=== PATIENT | male | born 1970 | race Caucasian/White ===

== ENCOUNTER 2017-12-01 20:28 | Emergency (ER) | payer MEDICAID ==
[2017-12-01] MEDS ORDERED: Ibuprofen 600 MG Tab PO STA (21:20)
--- NOTE | 2017-12-01 21:22 | EDM.PDOC ---
ED HPI GENERAL MEDICAL PROBLEM - General Chief Complaint: Upper Extremity Injury/Pain Stated Complaint: SORE RIGHT ARM Time Seen by Provider: 12/01/17 20:28 Source of Information: Reports: Patient, Family (SO) History Limitations: Reports: Intoxication - History of Present Illness INITIAL COMMENTS - FREE TEXT/NARRATIVE: 47 y.o.w.m -etoh intoxicated-came with his SO to the ed after he boxed a door because he was upset his little dog vanished. Dog was found, later on. Pt c/o of right hand and right forearm pain, has FROM however. No N/V/D or any other acute medical issues. BP 114/73 RR 18 Pulse 104 temp 36.8 Pulse ox 97% on RA Onset Date: 12/01/17 Onset Time: 14:00 Duration: Hour(s): Location: Reports: Upper Extremity, Right Quality: Reports: Ache, Dull Severity: Moderate Improves with: Reports: Rest Worsens with: Reports: Movement Context: Reports: Trauma (boxed a wall) Associated Symptoms: Reports: No Other Symptoms Treatments BAKER BREAD: Reports: Other (see below) (ice) Rt arm Pain Score (Numeric/FACES): 9 - Related Data Allergies Allergy/AdvReac Type Severity Reaction Status Date / Time No Known Allergies Allergy Verified 12/01/17 20:40 Home Meds: Home Meds Aspirin [Ecotrin] 325 mg PO DAILY 12/01/17 [History] Metoprolol Succinate [Toprol XL] 25 mg PO BID 12/01/17 [History] Past Medical History - Past Health History Medical/Surgical History: Denies Medical/Surgical History HEENT History: Reports: Impaired Vision Cardiovascular History: Reports: Afib Other Dermatologic History: boil removed Social & Family History - Family History Family Medical History: Noncontributory - Tobacco Use Smoking Status *Q: Current Every Day Smoker Years of Tobacco use: 30 Packs/Tins Daily: 1 - Caffeine Use Caffeine Use: Reports: Soda - Recreational Drug Use Recreational Drug Use: No Review of Systems - Review of Systems Review Of Systems: Unable To Obtain (intoxicated) ED EXAM, GENERAL - Physical Exam Exam: See Below Exam Limited By: Intoxication General Appearance: Alert, WD/WN, Mild Distress Eye Exam: Bilateral Eye: Normal Inspection Ears: Normal External Exam Ear Exam: Bilateral Ear: Auricle Normal Nose: Normal Inspection, Normal Mucosa, No Blood Throat/Mouth: Normal Lips, Normal Gums, Normal Oropharynx, Normal Voice, No Airway Compromise Head: Atraumatic, Normocephalic Neck: Normal Inspection, Supple, Non-Tender, Full Range of Motion Respiratory/Chest: No Respiratory Distress, Lungs Clear, Normal Breath Sounds, No Accessory Muscle Use, Chest Non-Tender Cardiovascular: Normal Peripheral Pulses, Regular Rate, Rhythm, No Edema, No Gallop, No JVD, No Murmur GI/Abdominal: Normal Bowel Sounds, Soft, Non-Tender, No Organomegaly, No Distention, No Abnormal Bruit, No Mass, Pelvis Stable (Male) Exam: Deferred Rectal (Males) Exam: Deferred Back Exam: Normal Inspection, Full Range of Motion Extremities: Normal Inspection, Normal Range of Motion, No Pedal Edema, Other ( tender righ hand and right forearm) Neurological: Alert, Oriented, CN II-XII Intact, Normal Cognition, Normal Gait, No Motor/Sensory Deficits Psychiatric: Normal Affect, Normal Mood Skin Exam: Warm, Dry, Intact, Normal Color, No Rash Lymphatic: No Adenopathy Course - Vital Signs Text/Narrative:: 47 y.o.w.m -etoh intoxicated-came with his SO to the ed after he boxed a door because he was upset his little dog vanished. Dog was found, later on. Pt c/o of right hand and right forearm pain, has FROM however. No N/V/D or any other acute medical issues. BP 114/73 RR 18 Pulse 104 temp 36.8 Pulse ox 97% on RA PE: Intoxicated 47 y.o.w.m with right hand and forearm pain Imaging: (R) Hand/forearm: NAD Impression: Hand/forearm sprain Tx: ICE, Motrin, pt refused splint Reexam: Improved Plan: D/VC home with SO Last Recorded V/S: Last Vital Signs Temp 36.8 C 12/01/17 21:28 Pulse 97 12/01/17 21:28 Resp 18 12/01/17 21:28 BP 108/71 12/01/17 21:28 Pulse Ox 100 12/01/17 21:28 - Orders/Labs/Meds Orders: Active Orders 24 hr Category Date Time Status Forearm 2V Rt [CR] Stat Exams 12/01/17 20:46 Taken Hand Comp Min 3V Rt [CR] Stat Exams 12/01/17 20:46 Taken Meds: Medications Discontinued Medications Generic Name Dose Route Start Last Admin Trade Name Kane PRN Reason Stop Dose Admin Ibuprofen 600 mg 12/01/17 21:20 12/01/17 21:25 Motrin PO 12/01/17 21:21 600 mg ONETIME STA Administration Departure - Departure Time of Disposition: 21:20 Disposition: Home, Self-Care 01 Condition: Good Clinical Impression: Sprain of forearm, right Qualifiers: Encounter type: initial encounter Qualified Code(s): S63.501A - Unspecified sprain of right wrist, initial encounter - Discharge Information Instructions: RICE for Routine Care of Injuries, [id number], Wrist Sprain, Adult Referrals: Jose Skelton MD [Primary Care Provider] - Forms: ED Department Discharge Additional Instructions: Ice, rest and elevation, Motrin for pain, F/U, come back if your symptoms get worse acutely - My Orders Last 24 Hours: My Active Orders 12/01/17 20:46 Forearm 2V Rt [CR] Stat Hand Comp Min 3V Rt [CR] Stat - Assessment/Plan Last 24 Hours: My Active Orders 12/01/17 20:46 Forearm 2V Rt [CR] Stat Hand Comp Min 3V Rt [CR] Stat
[2017-12-01 21:32] VITALS: BP 108/71
== END 2017-12-01 21:28 | disposition home or self-care (01) ==
LOC: FB.ED 20:28
DX: S63.501A Unspecified sprain of right wrist, initial encounter (principal); F10.129 Alcohol abuse with intoxication, unspecified; F17.210 Nicotine dependence, cigarettes, uncomplicated; Z79.82 Long term (current) use of aspirin; Z79.899 Other long term (current) drug therapy; W22.8XXA Striking against or struck by other objects, initial encounter
CPT/HCPCS: 73090-RT; 73130-RT; 99283; A9270-GY

== ENCOUNTER 2018-04-08 12:32 | Emergency (ER) | payer SELFPAY ==
[2018-04-08] MEDS ORDERED: traMADol 50 MG Tab PO ONE (12:33)
[2018-04-08 12:48] VITALS: BP 136/84
--- NOTE | 2018-04-08 13:03 | EDM.PDOC ---
ED HPI GENERAL MEDICAL PROBLEM - General Chief Complaint: Back Pain or Injury Stated Complaint: SLIPPED ON ICE HIT BACK ON PICKUP BUMPER Time Seen by Provider: 04/08/18 12:59 Source of Information: Reports: Patient History Limitations: Reports: No Limitations - History of Present Illness INITIAL COMMENTS - FREE TEXT/NARRATIVE: Patient slipped on ice 04/04/18, struck right mid back against car bumper. Has had pain to this area since, pain in worse with inspiration. Denies hematuria. No other injuries. Onset Date: 04/04/18 Duration: Day(s): (4) Location: Reports: Back Quality: Reports: Dull Severity: Moderate Improves with: Reports: None Worsens with: Reports: Breathing Associated Symptoms: Reports: No Other Symptoms Treatments EQUINE VET: Reports: NSAIDS Right side Pain Score (Numeric/FACES): 6 - Related Data Allergies Allergy/AdvReac Type Severity Reaction Status Date / Time No Known Allergies Allergy Verified 04/08/18 12:39 Home Meds: Home Meds Aspirin [Ecotrin] 325 mg PO DAILY 12/01/17 [History] Metoprolol Succinate [Toprol XL] 25 mg PO BID 12/01/17 [History] Past Medical History HEENT History: Reports: Impaired Vision Cardiovascular History: Reports: Afib, Hypertension Neurological History: Reports: Migraines Dermatologic History: Reports: Other (See Below) Other Dermatologic History: boil removed Social & Family History - Family History Family Medical History: Noncontributory - Tobacco Use Smoking Status *Q: Current Every Day Smoker Tobacco Use Within Last Twelve Months: Cigarettes Years of Tobacco use: 30 Packs/Tins Daily: 1 Used Tobacco, but Quit: No - Caffeine Use Caffeine Use: Reports: Soda - Recreational Drug Use Recreational Drug Use: No ED ROS GENERAL - Review of Systems Review Of Systems: ROS reveals no pertinent complaints other than HPI. ED EXAM,LOWER BACK PAIN/INJURY - Physical Exam Exam: See Below Exam Limited By: No Limitations General Appearance: Alert, WD/WN, No Apparent Distress Ears: Normal External Exam Nose: Normal Inspection, Normal Mucosa Throat/Mouth: No Airway Compromise Head: Atraumatic, Normocephalic Neck: Normal Inspection, Full Range of Motion Respiratory/Chest: No Respiratory Distress, Lungs Clear, Normal Breath Sounds, No Accessory Muscle Use Cardiovascular: Regular Rate, Rhythm, No Murmur GI/Abdominal: Normal Bowel Sounds, Soft, Non-Tender, No Distention Back Exam: Other (Ecchymosis, and mild tenderness to right mid back, no crepitus ) Neurological: Alert, Normal Mood/Affect Skin Exam: Warm, Dry, Intact Course - Vital Signs Last Recorded V/S: Last Vital Signs Temp 36.5 C 04/08/18 12:35 Pulse 88 04/08/18 12:35 Resp 18 04/08/18 12:35 BP 136/84 04/08/18 12:35 Pulse Ox 100 04/08/18 12:35 - Orders/Labs/Meds Orders: Active Orders 24 hr Category Date Time Status Ribs 2V w Chest Rt [CR] Stat Exams 04/08/18 13:03 Taken - Radiology Interpretation Free Text/Narrative:: Right rib XR: NAD Departure - Departure Time of Disposition: 14:25 Disposition: Home, Self-Care 01 Condition: Good Clinical Impression: Contusion of right side of mid back Qualifiers: Encounter type: initial encounter Qualified Code(s): S20.221A - Contusion of right back wall of thorax, initial encounter - Discharge Information *PRESCRIPTION DRUG MONITORING PROGRAM REVIEWED*: Yes *COPY OF PRESCRIPTION DRUG MONITORING REPORT IN PATIENT CLARISSE: Not Applicable Instructions: Contusion, [id number] Referrals: Jose Skelton MD [Primary Care Provider] - Forms: ED Department Discharge Additional Instructions: Continue Ibuprofen as needed. May also take Tramadol as needed. Rest. Follow up if symptoms don't improve or worsen. - My Orders Last 24 Hours: My Active Orders 04/08/18 13:03 Ribs 2V w Chest Rt [CR] Stat - Assessment/Plan Last 24 Hours: My Active Orders 04/08/18 13:03 Ribs 2V w Chest Rt [CR] Stat
== END 2018-04-08 14:32 | disposition home or self-care (01) ==
LOC: FB.ED 12:32
DX: S20.221A Contusion of right back wall of thorax, initial encounter (principal); W00.0XXA Fall on same level due to ice and snow, initial encounter; I48.91 Unspecified atrial fibrillation; I10 Essential (primary) hypertension; G43.909 Migraine, unspecified, not intractable, without status migrainosus; F17.210 Nicotine dependence, cigarettes, uncomplicated; Z79.82 Long term (current) use of aspirin; Z79.899 Other long term (current) drug therapy
CPT/HCPCS: 71101; 99283; A9270

== ENCOUNTER 2020-02-20 05:22 | Emergency (ER) | payer SELFPAY ==
--- NOTE | 2020-02-20 06:32 | EDM.PDOC ---
ED HPI GENERAL MEDICAL PROBLEM - General Chief Complaint: Respiratory Problem Stated Complaint: SOB Time Seen by Provider: 02/20/20 06:15 Source of Information: Reports: Patient, Family History Limitations: Reports: No Limitations - History of Present Illness INITIAL COMMENTS - FREE TEXT/NARRATIVE: Darvin comes into [facility] ED with a 3 week hx of night time awakening and sensation o f gasping for breath. This has been associated with some coughing, but no zoe chest pain, palpitations, or lt headiness. He is not aware of any exposures. There is no sinus pressure or discharge, no sore throat, wheezing or recent sxs of GERD. 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 Mid upper abdomen Pain Score (Numeric/FACES): 5 - Related Data Allergies Allergy/AdvReac Type Severity Reaction Status Date / Time No Known Allergies Allergy Verified 02/20/20 06:50 Home Meds: Home Meds Apixaban [Eliquis] 5 mg PO BID #30 tablet 02/20/20 [Rx] Aspirin [Halfprin] 81 mg PO DAILY 02/20/20 [History] Furosemide [Lasix] 40 mg PO DAILY #14 tablet 02/20/20 [Rx] Past Medical History - Past Health History Medical/Surgical History: Denies Medical/Surgical History HEENT History: Reports: Impaired Vision Cardiovascular History: Reports: Afib, Hypertension Neurological History: Reports: Migraines Dermatologic History: Reports: Other (See Below) Other Dermatologic History: boil removed Social & Family History - Family History Family Medical History: No Pertinent Family History - Caffeine Use Caffeine Use: Reports: Soda ED ROS GENERAL - Review of Systems Review Of Systems: See Below Constitutional: Reports: No Symptoms HEENT: Reports: No Symptoms Respiratory: Reports: Shortness of Breath, Cough, Sputum Cardiovascular: Reports: No Symptoms Endocrine: Reports: No Symptoms GI/Abdominal: Reports: Other (GERD) : Reports: No Symptoms Musculoskeletal: Reports: No Symptoms Skin: Reports: No Symptoms Neurological: Reports: No Symptoms Psychiatric: Reports: No Symptoms Hematologic/Lymphatic: Reports: No Symptoms Immunologic: Reports: No Symptoms ED EXAM, GENERAL - Physical Exam Exam: See Below Exam Limited By: No Limitations General Appearance: Alert, WD/WN, No Apparent Distress Eye Exam: Bilateral Eye: EOMI, Normal Inspection, PERRL Ears: Normal External Exam Nose: Normal Inspection Throat/Mouth: Normal Inspection, Normal Oropharynx, Normal Voice, No Airway Compromise Head: Normocephalic Neck: Normal Inspection, Supple, Non-Tender Respiratory/Chest: No Respiratory Distress, Normal Breath Sounds, No Accessory Muscle Use, Chest Non-Tender, Crackles Cardiovascular: Irregularly Irregular GI/Abdominal: Soft, Non-Tender, No Organomegaly, No Distention, No Mass (Male) Exam: Deferred Rectal (Males) Exam: Deferred Back Exam: Normal Inspection Extremities: Normal Inspection Neurological: Alert, Oriented, CN II-XII Intact, Normal Cognition, Normal Gait, No Motor/Sensory Deficits Psychiatric: Normal Affect, Normal Mood Skin Exam: Warm, Dry, Intact, Normal Color, No Rash Lymphatic: No Adenopathy Course - Vital Signs Text/Narrative:: Following assessment, I obtained a chest x ray noting cardiac enlargement without effusions, mild perihilar engorgement; the ekg x 2 noted AF without injury; BNP 7349, CBC, CMP noted elevated LFTs, Covid 19 screen NEG. Troponin I was baseline. Findings consistent with AF and CHF. I administered Lasix 40 mg IM which prompted diuresis during observation, and administered Eliquis 5 mg po. Darvin will need to see PCP next week to arrange cardiology consult. Patient was agreeable to the COA. Last Recorded V/S: Last Vital Signs Temp 36.3 C 02/20/20 05:22 Pulse 113 H 02/20/20 08:43 Resp 19 02/20/20 08:43 BP 113/86 02/20/20 08:43 Pulse Ox 97 02/20/20 08:43 - Orders/Labs/Meds Orders: Active Orders 24 hr Category Date Time Status EKG Documentation Completion [RC] ASDIRECTED Care 02/20/20 06:04 Active Chest 1V Frontal [CR] Stat Exams 02/20/20 06:03 Taken EKG 12 Lead [EK] Routine Ther 02/20/20 06:03 Ordered Labs: Laboratory Tests 02/20/20 02/20/20 02/20/20 Range/Units 05:34 05:34 05:34 WBC 8.4 (3.2-10.1) x10-3/uL RBC 4.59 (3.90-5.90) x10(6)uL Hgb 14.6 (12.9-17.7) g/dL Hct 44.3 (38.3-50.1) % MCV 96.3 (80.8-98.7) fL MCH 31.7 (27.0-33.3) pg MCHC 32.9 (28.7-35.3) g/dL RDW 13.3 (12.4-15.0) % Plt Count 201 (117-477) x10(3)uL MPV 10.5 (6.7-11.0) fL Neut % (Auto) 68.8 (40.3-71.8) % Lymph % (Auto) 21.7 (15.8-45.3) % Dane % (Auto) 7.2 (5.5-15.2) % Eos % (Auto) 1.7 (0.1-6.8) % Baso % (Auto) 0.6 (0.3-3.8) % Neut # (Auto) 5.8 (1.7-6.9) x10-3/uL Lymph # (Auto) 1.8 (0.5-4.5) x10-3/uL Dane # (Auto) 0.6 (0.0-1.2) x10-3/uL Eos # (Auto) 0.1 (0.0-0.6) x10-3/uL Baso # (Auto) 0.1 (0.0-0.3) x10-3/uL PT (9.0-11.1) sec INR (1.00-1.24) APTT (24.4-33.2) SECONDS D-Dimer, Quantitative (0.0-0.59) mg/LFEU Sodium 135 (135-145) mmol/L Potassium 4.1 (3.5-5.3) mmol/L Chloride 100 (100-110) mmol/L Carbon Dioxide 26 (21-32) mmol/L BUN 13 (7-18) mg/dL Creatinine 0.9 (0.70-1.30) mg/dL Est Cr Clr Drug Dosing TNP Estimated GFR (MDRD) > 60 (>60) BUN/Creatinine Ratio 14.4 (9-20) Glucose 100 (80-116) mg/dL Calcium 8.5 L (8.6-10.2) mg/dL Total Bilirubin 0.6 (0.1-1.3) mg/dL AST 40 H D (5-25) IU/L ALT 67 H D (12-36) U/L Alkaline Phosphatase 76 (56-112) IU/L Troponin I (4.0-60.3) pg/mL C-Reactive Protein 1.4 H (0.5-0.9) mg/dL NT-Pro-B Natriuret Pep (<=125) pg/mL Total Protein 6.2 (6.0-8.0) g/dL Albumin 3.0 L (3.5-5.2) g/dL Globulin 3.2 g/dL Albumin/Globulin Ratio 0.9 TSH, Ultra Sensitive (0.36-3.74) IU/mL SARS-CoV-2 RNA (ROSALES) (NEGATIVE) 02/20/20 02/20/20 02/20/20 Range/Units 05:34 05:34 05:34 WBC (3.2-10.1) x10-3/uL RBC (3.90-5.90) x10(6)uL Hgb (12.9-17.7) g/dL Hct (38.3-50.1) % MCV (80.8-98.7) fL MCH (27.0-33.3) pg MCHC (28.7-35.3) g/dL RDW (12.4-15.0) % Plt Count (117-477) x10(3)uL MPV (6.7-11.0) fL Neut % (Auto) (40.3-71.8) % Lymph % (Auto) (15.8-45.3) % Dane % (Auto) (5.5-15.2) % Eos % (Auto) (0.1-6.8) % Baso % (Auto) (0.3-3.8) % Neut # (Auto) (1.7-6.9) x10-3/uL Lymph # (Auto) (0.5-4.5) x10-3/uL Dane # (Auto) (0.0-1.2) x10-3/uL Eos # (Auto) (0.0-0.6) x10-3/uL Baso # (Auto) (0.0-0.3) x10-3/uL PT (9.0-11.1) sec INR (1.00-1.24) APTT (24.4-33.2) SECONDS D-Dimer, Quantitative 1.61 H (0.0-0.59) mg/LFEU Sodium (135-145) mmol/L Potassium (3.5-5.3) mmol/L Chloride (100-110) mmol/L Carbon Dioxide (21-32) mmol/L BUN (7-18) mg/dL Creatinine (0.70-1.30) mg/dL Est Cr Clr Drug Dosing Estimated GFR (MDRD) (>60) BUN/Creatinine Ratio (9-20) Glucose (80-116) mg/dL Calcium (8.6-10.2) mg/dL Total Bilirubin (0.1-1.3) mg/dL AST (5-25) IU/L ALT (12-36) U/L Alkaline Phosphatase (56-112) IU/L Troponin I 26.7 (4.0-60.3) pg/mL C-Reactive Protein (0.5-0.9) mg/dL NT-Pro-B Natriuret Pep 7349 H* (<=125) pg/mL Total Protein (6.0-8.0) g/dL Albumin (3.5-5.2) g/dL Globulin g/dL Albumin/Globulin Ratio TSH, Ultra Sensitive 5.21 H (0.36-3.74) IU/mL SARS-CoV-2 RNA (ROSALES) (NEGATIVE) 02/20/20 02/20/20 Range/Units 06:45 07:15 WBC (3.2-10.1) x10-3/uL RBC (3.90-5.90) x10(6)uL Hgb (12.9-17.7) g/dL Hct (38.3-50.1) % MCV (80.8-98.7) fL MCH (27.0-33.3) pg MCHC (28.7-35.3) g/dL RDW (12.4-15.0) % Plt Count (117-477) x10(3)uL MPV (6.7-11.0) fL Neut % (Auto) (40.3-71.8) % Lymph % (Auto) (15.8-45.3) % Dane % (Auto) (5.5-15.2) % Eos % (Auto) (0.1-6.8) % Baso % (Auto) (0.3-3.8) % Neut # (Auto) (1.7-6.9) x10-3/uL Lymph # (Auto) (0.5-4.5) x10-3/uL Dane # (Auto) (0.0-1.2) x10-3/uL Eos # (Auto) (0.0-0.6) x10-3/uL Baso # (Auto) (0.0-0.3) x10-3/uL PT 11.4 H (9.0-11.1) sec INR 1.06 (1.00-1.24) APTT 24.7 (24.4-33.2) SECONDS D-Dimer, Quantitative (0.0-0.59) mg/LFEU Sodium (135-145) mmol/L Potassium (3.5-5.3) mmol/L Chloride (100-110) mmol/L Carbon Dioxide (21-32) mmol/L BUN (7-18) mg/dL Creatinine (0.70-1.30) mg/dL Est Cr Clr Drug Dosing Estimated GFR (MDRD) (>60) BUN/Creatinine Ratio (9-20) Glucose (80-116) mg/dL Calcium (8.6-10.2) mg/dL Total Bilirubin (0.1-1.3) mg/dL AST (5-25) IU/L ALT (12-36) U/L Alkaline Phosphatase (56-112) IU/L Troponin I (4.0-60.3) pg/mL C-Reactive Protein (0.5-0.9) mg/dL NT-Pro-B Natriuret Pep (<=125) pg/mL Total Protein (6.0-8.0) g/dL Albumin (3.5-5.2) g/dL Globulin g/dL Albumin/Globulin Ratio TSH, Ultra Sensitive (0.36-3.74) IU/mL SARS-CoV-2 RNA (ROSALES) Negative (NEGATIVE) Meds: Medications Discontinued Medications Generic Name Dose Route Start Last Admin Trade Name Rikyq PRN Reason Stop Dose Admin Apixaban 5 mg 02/20/20 21:00 Eliquis PO BID GABRIEL Apixaban 5 mg 02/20/20 09:21 Eliquis PO 02/20/20 09:22 ONETIME ONE Furosemide 40 mg 02/20/20 08:09 02/20/20 08:15 Lasix IM 02/20/20 08:10 40 mg NOW ONE Administration Departure - Departure Time of Disposition: 09:37 Disposition: Home, Self-Care 01 Condition: Fair Clinical Impression: Atrial fibrillation with normal ventricular rate Congestive heart failure Qualifiers: Heart failure type: unspecified Heart failure chronicity: unspecified Qualified Code(s): I50.9 - Heart failure, unspecified - Discharge Information *PRESCRIPTION DRUG MONITORING PROGRAM REVIEWED*: Not Applicable *COPY OF PRESCRIPTION DRUG MONITORING REPORT IN PATIENT CLARISSE: Not Applicable Prescriptions: Apixaban [Eliquis] 5 mg PO BID #30 tablet Furosemide [Lasix] 40 mg PO DAILY #14 tablet Forms: ED Department Discharge Sepsis Event Note (ED) - Focused Exam Vital Signs: Vital Signs Temp Pulse Resp BP Pulse Ox 02/20/20 08:43 113 H 19 113/86 97 02/20/20 06:49 116 H 18 97 02/20/20 05:22 36.3 C 106 H 20 104/85 98 - Problem List & Annotations (1) Atrial fibrillation with normal ventricular rate SNOMED Code(s): 72783251 Code(s): I48.91 - UNSPECIFIED ATRIAL FIBRILLATION Status: Acute Current Visit: Yes Annotation/Comment:: Continue Eliquis 5 mg qd and Lasix 40 mg qd po, low salt diet, and avoid liquor and smoking. (2) Congestive heart failure SNOMED Code(s): 08733988 Code(s): I50.9 - HEART FAILURE, UNSPECIFIED Status: Acute Current Visit: Yes Annotation/Comment:: Continue Lasix 40 mg po qd, and avoid smoking and liquor. Qualifiers: Heart failure type: unspecified Heart failure chronicity: unspecified Qualified Code(s): I50.9 - Heart failure, unspecified - Problem List Review Problem List Initiated/Reviewed/Updated: Yes - My Orders Last 24 Hours: My Active Orders 02/20/20 06:03 Chest 1V Frontal [CR] Stat EKG 12 Lead [EK] Routine 02/20/20 06:04 EKG Documentation Completion [RC] ASDIRECTED - Assessment/Plan Last 24 Hours: My Active Orders 02/20/20 06:03 Chest 1V Frontal [CR] Stat EKG 12 Lead [EK] Routine 02/20/20 06:04 EKG Documentation Completion [RC] ASDIRECTED Plan: Follow up with PCP next week.
[2020-02-20] MEDS ORDERED: Furosemide 40 MG/4 ML VIAL IM ONE (08:09)
[2020-02-20] MEDS ORDERED: Apixaban 5 MG Tab PO ONE (09:21)
[2020-02-20 10:45] VITALS: BP 109/71; PULSE 107
[2020-02-20] MEDS ORDERED: Apixaban 5 MG Tab PO SCH (21:00)
--- NOTE | 2020-02-22 12:35 | CR ---
INDICATION: Nighttime dyspnea. CHEST ONE VIEW: AP upright view of the chest in a wheelchair was obtained 02/20/20 and compared with 04/08/18, now revealing the heart to appear enlarged with slight prominence of the upper lungs pulmonary vasculature compared with the previous study, raising question of a mild or early CHF. This should be correlated clinically. Overlying EKG leads are noted. The lungs appear to be slightly hyperaerated with minimal flattening of diaphragm leaves raising question of COPD - correlate clinically. No consolidating pneumonia or effusion was seen with pulmonary markings overall similar to the previous examination. There is some minimal tenting of the left hemidiaphragm likely on the basis of fibrosis in that area. IMPRESSION: 1. Probable ASHD with possibility of mild or early CHF - correlate clinically. 2. Question possibility of COPD - correlate clinically. MTDD
== END 2020-02-20 10:15 | disposition home or self-care (01) ==
LOC: FB.ED 05:22
DX: I48.91 Unspecified atrial fibrillation (principal); I11.0 Hypertensive heart disease with heart failure; I50.9 Heart failure, unspecified; Z20.828 Contact with and (suspected) exposure to other viral communicable diseases; Z79.01 Long term (current) use of anticoagulants; Z79.82 Long term (current) use of aspirin
CPT/HCPCS: 36415; 71045; 80053; 83880; 84443; 84484; 85025; 85379; 85610; 85730; 86140; 87635; 93005; 96372; 99284; 99285; A9270; J1940; U0002

== ENCOUNTER 2020-03-11 13:26 | Emergency (ER) | payer OTHER ==
[2020-03-11] MEDS ORDERED: Furosemide 40 MG/4 ML VIAL IVPUSH ONE (14:52)
[2020-03-11] MEDS ORDERED: Morphine 2 MG/ML SYRINGE IVPUSH ONE (14:55)
[2020-03-11] MEDS ORDERED: Alum Hydroxide/Mag Hydroxide 15 ML, Lidocaine 2% 15 ML PO ONE ×2 (15:41)
--- NOTE | 2020-03-11 17:48 | EDM.PDOC ---
ED HPI GENERAL MEDICAL PROBLEM - General Chief Complaint: Chest Pain Stated Complaint: CHEST PAIN Time Seen by Provider: 03/11/20 13:40 Source of Information: Reports: Patient History Limitations: Reports: No Limitations - History of Present Illness INITIAL COMMENTS - FREE TEXT/NARRATIVE: pt presented with retrosternal chest pressure with radiation to the left arm, no shortness of breath , no cough , no fever pt states he has a history of heart failure, recently dose of meoprolol was increased and was asked to use lasix only as needed girlfriend thinks he has leg swelling has gained about 3 lb since last time he weighed denies contact with [employer] patient Onset: Today Onset Date: 03/11/20 Duration: Hour(s):, Waxing/Waning Location: Reports: Chest Quality: Reports: Ache, Pressure Severity: Moderate Improves with: Reports: Rest Worsens with: Reports: Movement Context: Reports: Activity Associated Symptoms: Reports: Diaphoresis, Weakness 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) (had stopped taking Lasix) Chest Pain Score (Numeric/FACES): 7 - Related Data Allergies Allergy/AdvReac Type Severity Reaction Status Date / Time No Known Allergies Allergy Verified 02/20/20 06:50 Home Meds: Home Meds Apixaban [Eliquis] 5 mg PO BID #30 tablet 02/20/20 [Rx] Aspirin [Halfprin] 81 mg PO DAILY 02/20/20 [History] Furosemide [Lasix] 40 mg PO DAILY #14 tablet 02/20/20 [Rx] Past Medical History - Past Health History Medical/Surgical History: Denies Medical/Surgical History HEENT History: Reports: Impaired Vision Cardiovascular History: Reports: Afib, Hypertension Gastrointestinal History: Reports: GERD Musculoskeletal History: Reports: Fracture Other Musculoskeletal History: hx fingers fx bilat hands, L ankle fx Neurological History: Reports: Migraines Psychiatric History: Reports: Anxiety Dermatologic History: Reports: Other (See Below) Other Dermatologic History: boil removed - Infectious Disease History Infectious Disease History: Reports: Chicken Pox - Past Surgical History GI Surgical History: Reports: EGD Musculoskeletal Surgical History: Reports: None Social & Family History - Family History Family Medical History: No Pertinent Family History - Tobacco Use Tobacco Use Status *Q: Current Every Day Tobacco User Years of Tobacco use: 36 Packs/Tins Daily: 0.2 - Caffeine Use Caffeine Use: Reports: Soda ED ROS GENERAL - Review of Systems Review Of Systems: See Below Constitutional: Reports: Weakness, Fatigue, Weight Gain. Denies: Fever, Chills, Malaise, Decreased Appetite HEENT: Reports: No Symptoms Respiratory: Denies: Shortness of Breath, Pleuritic Chest Pain, Cough Cardiovascular: Reports: Chest Pain, Dyspnea on Exertion, Palpitations Endocrine: Denies: Fatigue GI/Abdominal: Reports: No Symptoms : Reports: No Symptoms Musculoskeletal: Reports: No Symptoms Skin: Reports: No Symptoms Neurological: Denies: Headache, Numbness, Seizure, Syncope, Tingling Psychiatric: Reports: No Symptoms Hematologic/Lymphatic: Reports: No Symptoms Immunologic: Reports: No Symptoms ED EXAM, GENERAL - Physical Exam Exam: See Below Exam Limited By: No Limitations General Appearance: Alert, WD/WN, No Apparent Distress Eye Exam: Bilateral Eye: EOMI Ears: Normal External Exam Nose: Normal Inspection, Normal Mucosa Throat/Mouth: Normal Inspection, Normal Oropharynx Head: Atraumatic Neck: Supple, Non-Tender Respiratory/Chest: Lungs Clear, Normal Breath Sounds Cardiovascular: Irregularly Irregular GI/Abdominal: Normal Bowel Sounds, Soft Extremities: Pedal Edema (bilateral, pitting) Neurological: Alert, Oriented, CN II-XII Intact Psychiatric: Normal Affect, Normal Mood Skin Exam: Warm, Dry, Intact #1 Interpretation EKG Date: 03/11/20 Rhythm: A-Fib [place]: Normal P-Wave: Present QRS: Normal ST-T: Normal QT: Normal Course - Orders/Labs/Meds Labs: Laboratory Tests 03/11/20 03/11/20 03/11/20 Range/Units 13:45 13:45 13:45 WBC 8.7 (3.2-10.1) x10-3/uL RBC 5.13 (3.90-5.90) x10(6)uL Hgb 15.9 (12.9-17.7) g/dL Hct 48.8 (38.3-50.1) % MCV 95.1 (80.8-98.7) fL MCH 31.0 (27.0-33.3) pg MCHC 32.6 (28.7-35.3) g/dL RDW 13.3 (12.4-15.0) % Plt Count 229 (117-477) x10(3)uL MPV 10.4 (6.7-11.0) fL Neut % (Auto) 62.7 (40.3-71.8) % Lymph % (Auto) 27.5 (15.8-45.3) % Becker % (Auto) 7.3 (5.5-15.2) % Eos % (Auto) 1.6 (0.1-6.8) % Baso % (Auto) 0.9 (0.3-3.8) % Neut # (Auto) 5.5 (1.7-6.9) x10-3/uL Lymph # (Auto) 2.4 (0.5-4.5) x10-3/uL Becker # (Auto) 0.6 (0.0-1.2) x10-3/uL Eos # (Auto) 0.1 (0.0-0.6) x10-3/uL Baso # (Auto) 0.1 (0.0-0.3) x10-3/uL PT 12.1 H (9.0-11.1) sec INR 1.13 (1.00-1.24) D-Dimer, Quantitative 0.56 (0.0-0.59) mg/LFEU Sodium (135-145) mmol/L Potassium (3.5-5.3) mmol/L Chloride (100-110) mmol/L Carbon Dioxide (21-32) mmol/L BUN (7-18) mg/dL Creatinine (0.70-1.30) mg/dL Est Cr Clr Drug Dosing Estimated GFR (MDRD) (>60) BUN/Creatinine Ratio (9-20) Glucose (80-116) mg/dL Calcium (8.6-10.2) mg/dL Total Bilirubin (0.1-1.3) mg/dL AST (5-25) IU/L ALT (12-36) U/L Alkaline Phosphatase (56-112) IU/L Troponin I 18.3 (4.0-60.3) pg/mL NT-Pro-B Natriuret Pep 7648 H* (<=125) pg/mL Total Protein (6.0-8.0) g/dL Albumin (3.5-5.2) g/dL Globulin g/dL Albumin/Globulin Ratio 03/11/20 03/11/20 Range/Units 13:45 16:58 WBC (3.2-10.1) x10-3/uL RBC (3.90-5.90) x10(6)uL Hgb (12.9-17.7) g/dL Hct (38.3-50.1) % MCV (80.8-98.7) fL MCH (27.0-33.3) pg MCHC (28.7-35.3) g/dL RDW (12.4-15.0) % Plt Count (117-477) x10(3)uL MPV (6.7-11.0) fL Neut % (Auto) (40.3-71.8) % Lymph % (Auto) (15.8-45.3) % Becker % (Auto) (5.5-15.2) % Eos % (Auto) (0.1-6.8) % Baso % (Auto) (0.3-3.8) % Neut # (Auto) (1.7-6.9) x10-3/uL Lymph # (Auto) (0.5-4.5) x10-3/uL Becker # (Auto) (0.0-1.2) x10-3/uL Eos # (Auto) (0.0-0.6) x10-3/uL Baso # (Auto) (0.0-0.3) x10-3/uL PT (9.0-11.1) sec INR (1.00-1.24) D-Dimer, Quantitative (0.0-0.59) mg/LFEU Sodium 138 (135-145) mmol/L Potassium 4.1 (3.5-5.3) mmol/L Chloride 102 (100-110) mmol/L Carbon Dioxide 26 (21-32) mmol/L BUN 17 (7-18) mg/dL Creatinine 1.3 (0.70-1.30) mg/dL Est Cr Clr Drug Dosing TNP Estimated GFR (MDRD) 58 L (>60) BUN/Creatinine Ratio 13.1 (9-20) Glucose 128 H (80-116) mg/dL Calcium 8.6 (8.6-10.2) mg/dL Total Bilirubin 0.9 (0.1-1.3) mg/dL AST 18 D (5-25) IU/L ALT 38 H D (12-36) U/L Alkaline Phosphatase 89 (56-112) IU/L Troponin I 19.4 (4.0-60.3) pg/mL NT-Pro-B Natriuret Pep (<=125) pg/mL Total Protein 7.5 (6.0-8.0) g/dL Albumin 3.4 L (3.5-5.2) g/dL Globulin 4.1 g/dL Albumin/Globulin Ratio 0.8 Meds: Medications Discontinued Medications Generic Name Dose Route Start Last Admin Trade Name Freq PRN Reason Stop Dose Admin Al Hydroxide/Mg Hydroxide 15 0 ml 03/11/20 15:41 03/11/20 15:47 ml/ Lidocaine HCl 15 ml PO 03/11/20 15:42 15 ml ONETIME ONE Administration Furosemide 40 mg 03/11/20 14:52 03/11/20 14:57 Lasix IVPUSH 03/11/20 14:53 40 mg NOW ONE Administration Morphine Sulfate 2 mg 03/11/20 14:55 03/11/20 14:59 Morphine IVPUSH 03/11/20 14:56 2 mg ONETIME ONE Administration - Re-Assessments/Exams Free Text/Narrative Re-Assessment/Exam: 03/11/20 18:05 remained stable had labs drawn , EKG , Cxray had elevated BNP, negative troponin BP was low so was not able to get nitroglycerin had morphine with some relieve of chest pressure and then given lasix Had Gi cocktail and chest pain resolved has had about 1400 cc of UOP Troponin repeat was also negative pt will be discharged home Departure - Departure Time of Disposition: 18:10 Disposition: Home, Self-Care 01 Condition: Good Clinical Impression: Congestive heart failure (CHF), GERD (gastroesophageal reflux disease), Atypical chest pain Instructions: Food Choices for Gastroesophageal Reflux Disease, Adult, [id number], Heart Failure, Self Care, [id number], Heart Failure, Diagnosis, [id number], Heart Failure Eating Plan Referrals: PCP,None [Ordering Only Provider] - Forms: ED Department Discharge Additional Instructions: No SALT diet Continue with current medications as 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
== END 2020-03-11 18:43 | disposition home or self-care (01) ==
LOC: FB.ED 13:26
DX: K21.9 Gastro-esophageal reflux disease without esophagitis (principal); I11.0 Hypertensive heart disease with heart failure; I50.9 Heart failure, unspecified; I48.91 Unspecified atrial fibrillation; F17.210 Nicotine dependence, cigarettes, uncomplicated; Z79.82 Long term (current) use of aspirin; Z79.01 Long term (current) use of anticoagulants; Z79.899 Other long term (current) drug therapy
CPT/HCPCS: 36415; 71045; 80053; 83880; 84484; 85025; 85379; 85610; 93005; 96374; 96375; 99285; A9270; J1940; J2270; 99284

== ENCOUNTER 2020-06-15 00:54 | Emergency (ER) | payer MEDICAID ==
[2020-06-15] MEDS ORDERED: Pantoprazole 40 MG Vial IVPUSH STA (01:19)
[2020-06-15] MEDS ORDERED: Morphine 2 MG/ML SYRINGE IVPUSH STA ×3 (01:19→04:15)
[2020-06-15] MEDS ORDERED: Sodium Chloride 0.9% 1,000 ML IV STA (01:21)
--- NOTE | 2020-06-15 01:30 | EDM.PDOC ---
ED HPI GENERAL MEDICAL PROBLEM - General Stated Complaint: abdominal pain Time Seen by Provider: 06/15/20 01:00 Source of Information: Reports: Patient, Family History Limitations: Reports: No Limitations - History of Present Illness INITIAL COMMENTS - FREE TEXT/NARRATIVE: Patient presented to the ED because of LLQ pain and periumbilical pain which started yesterday morning. The pain is sharp,3/10. There is no nausea or vomiting. Tonight the pain got worse,10/10, with 3 dark looking stools. There is no fever,chills, cough/cold symptoms. He had his covid vaccine ist week of May and no known exposure. Abdominal, L>R Pain Score (Numeric/FACES): 10 - Related Data Allergies Allergy/AdvReac Type Severity Reaction Status Date / Time No Known Allergies Allergy Verified 06/15/20 01:36 Home Meds: Home Meds Furosemide [Lasix] 40 mg PO DAILY #14 tablet 02/20/20 [Rx] Metoprolol Succinate [Toprol Xl] 50 mg PO DAILY 06/15/20 [History] Multivitamin [One-Daily Multi-Vitamin] 1 each PO DAILY 06/15/20 [History] Rivaroxaban [Xarelto] 20 mg PO DAILY 06/15/20 [History] lisinopriL [Lisinopril] 10 mg PO DAILY 06/15/20 [History] Past Medical History - Past Health History Medical/Surgical History: Denies Medical/Surgical History HEENT History: Reports: Impaired Vision Cardiovascular History: Reports: Afib, Hypertension Gastrointestinal History: Reports: GERD Musculoskeletal History: Reports: Fracture Other Musculoskeletal History: hx fingers fx bilat hands, L ankle fx Neurological History: Reports: Migraines Psychiatric History: Reports: Anxiety Dermatologic History: Reports: Other (See Below) Other Dermatologic History: boil removed - Infectious Disease History Infectious Disease History: Reports: Chicken Pox - Past Surgical History GI Surgical History: Reports: EGD Musculoskeletal Surgical History: Reports: None Social & Family History - Family History Family Medical History: No Pertinent Family History - Caffeine Use Caffeine Use: Reports: Soda ED ROS GENERAL - Review of Systems Review Of Systems: See Below Constitutional: Reports: No Symptoms HEENT: Reports: No Symptoms Respiratory: Reports: No Symptoms Cardiovascular: Reports: No Symptoms Endocrine: Reports: No Symptoms GI/Abdominal: Reports: Abdominal Pain, Black Stool : Reports: No Symptoms Musculoskeletal: Reports: No Symptoms Skin: Reports: No Symptoms Neurological: Reports: No Symptoms Psychiatric: Reports: No Symptoms Hematologic/Lymphatic: Reports: No Symptoms ED EXAM, GI/ABD - Physical Exam Exam: See Below Exam Limited By: No Limitations General Appearance: Alert, No Apparent Distress Ears: Normal External Exam, Normal [place] Nose: Normal Inspection, Normal Mucosa, No Blood Throat/Mouth: Normal Inspection, Normal Lips Head: Atraumatic, Normocephalic Neck: Normal Inspection, Supple, Non-Tender, Full Range of Motion Respiratory/Chest: No Respiratory Distress, Lungs Clear, Normal Breath Sounds, No Accessory Muscle Use, Chest Non-Tender Cardiovascular: Normal Peripheral Pulses, Regular Rate, Rhythm, No Edema, No Gallop GI/Abdominal Exam: Normal Bowel Sounds, Soft, No Organomegaly, No Distention, Other (tenderness on LLQ and periumbilical area) Rectal (Males) Exam: Normal Exam, Normal Rectal Tone Back Exam: Normal Inspection, Full Range of Motion Extremities: Normal Inspection, Normal Range of Motion, Non-Tender Neurological: Alert, Oriented, CN II-XII Intact Psychiatric: Normal Affect, Normal Mood Skin Exam: Warm #1 Interpretation EKG Date: 06/15/20 Time: 01:08 Rhythm: NSR Rate (Beats/Min): 79 [place]: Normal P-Wave: Present QRS: Normal ST-T: Normal QT: Normal Comparison: No Change EKG Interpretation Comments: NSR T wave inversion v2-v5 Course - Vital Signs Text/Narrative:: Labs/CT abd-pelvis was discussed with patient NS 1 L in 2 hours Morphine 2 mg IV x2 Protnix 80 mg IV x1 Ancef 2 gm IV Flagyl 500 mg IV Code status:-Full Code Case discussed with DR Florence Last Recorded V/S: Last Vital Signs Temp 37.3 C 06/15/20 02:35 Pulse 103 H 06/15/20 02:35 Resp 18 06/15/20 02:35 BP 103/47 L 06/15/20 02:35 Pulse Ox 99 06/15/20 02:35 - Orders/Labs/Meds Orders: Active Orders 24 hr Category Date Time Status EKG Documentation Completion [RC] ASDIRECTED Care 06/15/20 01:25 Active Abdomen Pelvis w Cont [CT] Stat Exams 06/15/20 01:23 Taken UA W/MICROSCOPIC [URIN] Stat Lab 06/15/20 01:22 Ordered metroNIDAZOLE/Normal Saline [Flagyl in NS 500 MG/100 ML Med 06/15/20 03:36 Ordered ] 500 mg Premix Bag 1 bag IV NOW EKG 12 Lead [EK] Routine Ther 06/15/20 01:25 Ordered Medication Orders Metronidazole 500 mg/ Premix 100 mls @ 100 mls/hr IV NOW STA Stop: 06/15/20 04:35 Labs: Laboratory Tests 06/15/20 06/15/20 06/15/20 Range/Units 01:15 01:15 01:15 WBC 21.2 H (3.2-10.1) x10-3/uL RBC 4.33 (3.90-5.90) x10(6)uL Hgb 13.5 (12.9-17.7) g/dL Hct 40.1 (38.3-50.1) % MCV 92.6 (80.8-98.7) fL MCH 31.1 (27.0-33.3) pg MCHC 33.6 (28.7-35.3) g/dL RDW 14.9 (12.4-15.0) % Plt Count 236 (117-477) x10(3)uL MPV 9.5 (6.7-11.0) fL Add Manual Diff Yes Neutrophils % (Manual) 75 (46-82) % Band Neutrophils % 6 (0-6) % Lymphocytes % (Manual) 12 L (13-37) % Monocytes % (Manual) 7 (4-12) % PT 13.4 H (9.0-11.1) sec INR 1.26 H (1.00-1.24) APTT 35.4 H (24.4-33.2) SECONDS Sodium 130 L (135-145) mmol/L Potassium 3.4 L (3.5-5.3) mmol/L Chloride 93 L D (100-110) mmol/L Carbon Dioxide 26 (21-32) mmol/L BUN 10 (7-18) mg/dL Creatinine 0.9 (0.70-1.30) mg/dL Est Cr Clr Drug Dosing 84.10 mL/min Estimated GFR (MDRD) > 60 (>60) BUN/Creatinine Ratio 11.1 (9-20) Glucose 138 H (80-116) mg/dL Calcium 8.6 (8.6-10.2) mg/dL Total Bilirubin 1.2 (0.1-1.3) mg/dL AST 10 D (5-25) IU/L ALT 27 D (12-36) U/L Alkaline Phosphatase 89 (56-112) IU/L Troponin I (4.0-60.3) pg/mL Total Protein 7.3 (6.0-8.0) g/dL Albumin 3.4 L (3.5-5.2) g/dL Globulin 3.9 g/dL Albumin/Globulin Ratio 0.9 Amylase 46 (25-115) U/L Lipase (73-393) U/L 06/15/20 06/15/20 Range/Units 01:15 01:15 WBC (3.2-10.1) x10-3/uL RBC (3.90-5.90) x10(6)uL Hgb (12.9-17.7) g/dL Hct (38.3-50.1) % MCV (80.8-98.7) fL MCH (27.0-33.3) pg MCHC (28.7-35.3) g/dL RDW (12.4-15.0) % Plt Count (117-477) x10(3)uL MPV (6.7-11.0) fL Add Manual Diff Neutrophils % (Manual) (46-82) % Band Neutrophils % (0-6) % Lymphocytes % (Manual) (13-37) % Monocytes % (Manual) (4-12) % PT (9.0-11.1) sec INR (1.00-1.24) APTT (24.4-33.2) SECONDS Sodium (135-145) mmol/L Potassium (3.5-5.3) mmol/L Chloride (100-110) mmol/L Carbon Dioxide (21-32) mmol/L BUN (7-18) mg/dL Creatinine (0.70-1.30) mg/dL Est Cr Clr Drug Dosing mL/min Estimated GFR (MDRD) (>60) BUN/Creatinine Ratio (9-20) Glucose (80-116) mg/dL Calcium (8.6-10.2) mg/dL Total Bilirubin (0.1-1.3) mg/dL AST (5-25) IU/L ALT (12-36) U/L Alkaline Phosphatase (56-112) IU/L Troponin I 6.2 (4.0-60.3) pg/mL Total Protein (6.0-8.0) g/dL Albumin (3.5-5.2) g/dL Globulin g/dL Albumin/Globulin Ratio Amylase (25-115) U/L Lipase 59 L (73-393) U/L Meds: Medications Generic Name Dose Route Start Last Admin Trade Name Freq PRN Reason Stop Dose Admin Metronidazole 500 mg/ Premix 100 mls @ 100 mls/hr 06/15/20 03:36 IV 06/15/20 04:35 NOW STA Discontinued Medications Generic Name Dose Route Start Last Admin Trade Name Freq PRN Reason Stop Dose Admin Cefazolin Sodium 2 gm 06/15/20 03:36 Cefazolin 1 Gm Vial IVPUSH 06/15/20 03:37 NOW STA Sodium Chloride 1,000 mls @ 500 mls/hr 06/15/20 01:21 06/15/20 01:30 Normal Saline IV 06/15/20 03:20 500 mls/hr NOW STA Administration Iopamidol 100 ml 06/15/20 02:15 06/15/20 02:34 Iopamidol 755 Mg/Ml 100 Ml Bottle IV 06/15/20 02:16 100 ml . DIRECTED ONE Administration Morphine Sulfate 2 mg 06/15/20 01:19 06/15/20 01:31 Morphine 2 Mg/Ml Syringe IVPUSH 06/15/20 01:20 2 mg NOW STA Administration Morphine Sulfate 2 mg 06/15/20 02:43 06/15/20 02:53 Morphine 2 Mg/Ml Syringe IVPUSH 06/15/20 02:44 2 mg NOW STA Administration Pantoprazole Sodium 80 mg 06/15/20 01:19 06/15/20 01:35 Pantoprazole 40 Mg Vial IVPUSH 06/15/20 01:20 80 mg NOW STA Administration Departure - Departure Time of Disposition: 03:55 Disposition: DC/Tfer to Acute Hospital 02 Condition: Good Clinical Impression: Diverticulitis, Hypokalemia - Discharge Information Referrals: Jose Oleary MD [Primary Care Provider] - Sepsis Event Note (ED) - Focused Exam Vital Signs: Vital Signs Temp Pulse Resp BP Pulse Ox 06/15/20 02:35 37.3 C 103 H 18 103/47 L 99 06/15/20 02:00 69 18 101/58 L 98 06/15/20 01:30 77 18 91/50 L 97 06/15/20 01:25 70 18 91/50 L 98 06/15/20 01:00 86 20 94/54 L 98 06/15/20 00:55 37.2 C 84 20 89/47 L 97 - My Orders Last 24 Hours: My Active Orders 06/15/20 01:22 UA W/MICROSCOPIC [URIN] Stat 06/15/20 01:23 Abdomen Pelvis w Cont [CT] Stat 06/15/20 01:25 EKG Documentation Completion [RC] ASDIRECTED EKG 12 Lead [EK] Routine 06/15/20 03:36 metroNIDAZOLE/Normal Saline [Flagyl in NS 500 MG/100 ML] 500 mg Premix Bag 1 bag IV NOW - Assessment/Plan Last 24 Hours: My Active Orders 06/15/20 01:22 UA W/MICROSCOPIC [URIN] Stat 06/15/20 01:23 Abdomen Pelvis w Cont [CT] Stat 06/15/20 01:25 EKG Documentation Completion [RC] ASDIRECTED EKG 12 Lead [EK] Routine 06/15/20 03:36 metroNIDAZOLE/Normal Saline [Flagyl in NS 500 MG/100 ML] 500 mg Premix Bag 1 bag IV NOW
[2020-06-15] MEDS ORDERED: Iopamidol 755 Mg/ML 100 ML Bottle IV ONE (02:15)
[2020-06-15] MEDS ORDERED: ceFAZolin 1 GM Vial IVPUSH STA (03:36)
[2020-06-15] MEDS ORDERED: metroNIDAZOLE/Normal Saline 500 MG in Premix Bag 1 BAG IV STA (03:36)
[2020-06-15] MEDS ORDERED: Sodium Chloride 0.9% 1,000 ML IV SCH (04:00)
[2020-06-15 06:04] VITALS: BP 108/49; PULSE 73
== END 2020-06-15 05:45 ==
LOC: FB.ED 00:54
DX: K57.32 Diverticulitis of large intestine without perforation or abscess without bleeding (principal); E87.6 Hypokalemia; I48.91 Unspecified atrial fibrillation; I10 Essential (primary) hypertension; Z79.01 Long term (current) use of anticoagulants; Z79.899 Other long term (current) drug therapy
CPT/HCPCS: 36415; 74177; 80053; 81001; 82150; 82272; 83690; 84484; 85025; 85610; 85730; 93005; 96365; 96375; 96376; 99285-25; C9113; J0690; J2270; J3490; J7030; Q9967

== ENCOUNTER 2020-07-19 20:15 | Emergency (ER) | payer MEDICAID ==
[2020-07-19] MEDS ORDERED: Sodium Chloride 0.9% 10 ML Syringe FLUSH PRN (20:20)
[2020-07-19] MEDS ORDERED: Aspirin 81 MG Tab.Chew PO STA (20:20)
--- NOTE | 2020-07-19 20:30 | EDM.PDOC ---
ED HPI GENERAL MEDICAL PROBLEM - General Stated Complaint: Chest pain Time Seen by Provider: 07/19/20 20:15 Source of Information: Reports: Patient History Limitations: Reports: No Limitations - History of Present Illness INITIAL COMMENTS - FREE TEXT/NARRATIVE: Patient presented to the ED because of chest pain which started while he is eating dinner. The pain is sharp,3/10, over the sternal area and is worse with breathing. There is no nausea,vomiting, dyspnea of diaphoresis.. he recently had an ablation for his Afib. - Related Data Allergies Allergy/AdvReac Type Severity Reaction Status Date / Time No Known Allergies Allergy Verified 07/19/20 23:55 Home Meds: Home Meds Multivitamin [One-Daily Multi-Vitamin] 1 each PO DAILY 06/15/20 [History] Rivaroxaban [Xarelto] 20 mg PO 1700 06/15/20 [History] lisinopriL [Lisinopril] 10 mg PO BEDTIME 06/15/20 [History] Amiodarone [Cordarone] 200 mg PO ASDIRECTED 07/19/20 [History] Furosemide [Lasix] 40 mg PO DAILY 07/19/20 [History] Metoprolol Succinate [Toprol XL] 50 mg PO DAILY 07/19/20 [History] Pantoprazole [ProTONIX] 40 mg PO DAILY 07/19/20 [History] Past Medical History - Past Health History Medical/Surgical History: Denies Medical/Surgical History HEENT History: Reports: Impaired Vision, Other (See Below) Other HEENT History: myopia Cardiovascular History: Reports: Afib, Cardiomyopathy, Heart Failure, Hypertension Respiratory History: Reports: COPD Gastrointestinal History: Reports: GERD Musculoskeletal History: Reports: Fracture Other Musculoskeletal History: hx fingers fx bilat hands, L ankle fx Neurological History: Reports: Concussion, Migraines Psychiatric History: Reports: Addiction, Anxiety Other Psychiatric History: hx ETOH abuse, has been in tx before Hematologic History: Reports: Anticoagulation Therapy Dermatologic History: Reports: Other (See Below) Other Dermatologic History: boil removed - Infectious Disease History Infectious Disease History: Reports: Chicken Pox, Novel Coronavirus - Past Surgical History GI Surgical History: Reports: EGD Musculoskeletal Surgical History: Reports: None Social & Family History - Family History Family Medical History: No Pertinent Family History - Caffeine Use Caffeine Use: Reports: Coffee ED ROS GENERAL - Review of Systems Review Of Systems: See Below Constitutional: Reports: No Symptoms HEENT: Reports: No Symptoms Respiratory: Reports: No Symptoms Cardiovascular: Reports: Chest Pain Endocrine: Reports: No Symptoms GI/Abdominal: Reports: No Symptoms : Reports: No Symptoms Musculoskeletal: Reports: No Symptoms Skin: Reports: No Symptoms Neurological: Reports: No Symptoms Psychiatric: Reports: No Symptoms ED EXAM, GENERAL - Physical Exam Exam: See Below Exam Limited By: No Limitations General Appearance: Alert, No Apparent Distress Eye Exam: Bilateral Eye: PERRL Ears: Normal External Exam, Normal Canal Nose: Normal Inspection, Normal Mucosa, No Blood Throat/Mouth: Normal Inspection, Normal Lips, Normal Teeth Head: Atraumatic, Normocephalic Neck: Normal Inspection, Supple, Non-Tender, Full Range of Motion Respiratory/Chest: No Respiratory Distress, Lungs Clear, Normal Breath Sounds, No Accessory Muscle Use, Chest Non-Tender Cardiovascular: Normal Peripheral Pulses, Regular Rate, Rhythm, No Edema, No Gallop, No JVD, No Murmur, No Rub GI/Abdominal: Normal Bowel Sounds, Soft, Non-Tender, No Organomegaly Back Exam: Normal Inspection, Full Range of Motion Extremities: Normal Inspection, Normal Range of Motion #1 Interpretation EKG Date: 07/19/20 Time: 20:25 Rhythm: NSR Rate (Beats/Min): 64 [place]: Normal P-Wave: Present QRS: Normal Comparison: NA - No Prior EKG EKG Interpretation Comments: NSR Course - Vital Signs Text/Narrative:: Lab/EKG/CXR result was discussed with patient and his ASA 324 mg PO x1 NTG 0.4 mg SL x1 Morphine 2 mg IV x1 NS 1 L bolus Cardiology consult was done with DR Koehler and she mentioned that the elevated troponin is due to the ablation especially with a normal ekg. Last Recorded V/S: Last Vital Signs Temp 36.9 C 07/19/20 20:15 Pulse Resp BP 103/57 L 07/19/20 21:05 Pulse Ox - Orders/Labs/Meds Orders: Active Orders 24 hr Category Date Time Status Chest 1V Frontal [CR] Stat Exams 07/19/20 20:20 Taken Saline Lock Insert [OM.PC] Routine Oth 07/19/20 20:20 Ordered EKG 12 Lead [EK] Routine Ther 07/19/20 20:20 Ordered Labs: Laboratory Tests 07/19/20 07/19/20 07/19/20 Range/Units 20:30 20:30 20:30 WBC 12.5 H (3.2-10.1) x10-3/uL RBC 3.79 L (3.90-5.90) x10(6)uL Hgb 11.9 L (12.9-17.7) g/dL Hct 36.4 L (38.3-50.1) % MCV 96.2 (80.8-98.7) fL MCH 31.5 (27.0-33.3) pg MCHC 32.7 (28.7-35.3) g/dL RDW 14.4 (12.4-15.0) % Plt Count 305 (117-477) x10(3)uL MPV 8.6 (6.7-11.0) fL Neut % (Auto) 62.4 (40.3-71.8) % Lymph % (Auto) 25.2 (15.8-45.3) % [place] % (Auto) 9.3 (5.5-15.2) % Eos % (Auto) 2.3 (0.1-6.8) % Baso % (Auto) 0.8 (0.3-3.8) % Neut # (Auto) 7.8 H (1.7-6.9) x10-3/uL Lymph # (Auto) 3.1 (0.5-4.5) x10-3/uL [place] # (Auto) 1.2 (0.0-1.2) x10-3/uL Eos # (Auto) 0.3 (0.0-0.6) x10-3/uL Baso # (Auto) 0.1 (0.0-0.3) x10-3/uL Sodium 141 D (135-145) mmol/L Potassium 3.9 (3.5-5.3) mmol/L Chloride 101 D (100-110) mmol/L Carbon Dioxide 30 (21-32) mmol/L BUN 12 (7-18) mg/dL Creatinine 0.9 (0.70-1.30) mg/dL Est Cr Clr Drug Dosing TNP Estimated GFR (MDRD) > 60 (>60) BUN/Creatinine Ratio 13.3 (9-20) Glucose 96 (80-116) mg/dL Calcium 8.4 L (8.6-10.2) mg/dL Total Bilirubin 0.2 (0.1-1.3) mg/dL AST 16 D (5-25) IU/L ALT 35 D (12-36) U/L Alkaline Phosphatase 76 (56-112) IU/L Troponin I 981.6 H* (4.0-60.3) pg/mL Total Protein 7.0 (6.0-8.0) g/dL Albumin 3.3 L (3.5-5.2) g/dL Globulin 3.7 g/dL Albumin/Globulin Ratio 0.9 Meds: Medications Discontinued Medications Generic Name Dose Route Start Last Admin Trade Name Freq PRN Reason Stop Dose Admin Aspirin 324 mg 07/19/20 20:20 07/19/20 20:20 Aspirin 81 Mg Tab.Chew PO 07/19/20 20:21 324 mg NOW STA Administration Sodium Chloride 1,000 mls @ 999 mls/hr 07/19/20 21:15 07/19/20 21:15 Normal Saline IV 999 mls/hr ASDIRECTED GABRIEL Administration Morphine Sulfate 2 mg 07/19/20 20:20 07/19/20 21:20 Morphine 2 Mg/Ml Syringe IVPUSH 07/19/20 20:21 2 mg NOW STA Administration Nitroglycerin 0.4 mg 07/19/20 21:03 07/19/20 21:05 Nitroglycerin 0.4 Mg Tab.Sl SL 0.4 mg Q5M PRN Administration Chest Pain Sodium Chloride 10 ml 07/19/20 20:20 Sodium Chloride 0.9% 10 Ml Syringe FLUSH ASDIRECTED PRN Keep Vein Open Departure - Departure Time of Disposition: 22:00 Disposition: Home, Self-Care 01 Condition: Good Clinical Impression: Status post ablation of atrial fibrillation, Elevated troponin Instructions: Nonspecific Chest Pain, Adult, [id number] Referrals: Sukhjinder Montanez DO [Primary Care Provider] - Forms: ED Department Discharge Additional Instructions: Sarah read discharge instructions on post ablation pain Take tylenol 1000 mg every 8 hours as needed for pain 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
[2020-07-19] MEDS: Morphine 2 MG/ML SYRINGE IVPUSH STA ×2 (20:59→21:20)
[2020-07-19] MEDS ORDERED: Nitroglycerin 0.4 MG Tab.SL SL PRN (21:03)
[2020-07-19] MEDS ORDERED: Sodium Chloride 0.9% 1,000 ML IV SCH (21:15)
[2020-07-19 21:46] VITALS: BP 103/57
--- NOTE | 2020-07-20 11:18 | CR ---
INDICATION: Chest pain. CHEST ONE VIEW: Portable AP upright view of the chest 07/19/20 was compared with 03/11/20 and 02/20/20. Despite a relatively poor inspiration, the heart does not appear to be enlarged. Minimal calcification is noted in the arch of the aorta. Overlying EKG leads are noted. A definite active infiltrate or effusion was not seen. IMPRESSION: No acute process. MTDD
== END 2020-07-19 22:25 | disposition home or self-care (01) ==
LOC: FB.ED 20:15
DX: I48.91 Unspecified atrial fibrillation (principal); R79.89 Other specified abnormal findings of blood chemistry; I11.0 Hypertensive heart disease with heart failure; I50.9 Heart failure, unspecified; K21.9 Gastro-esophageal reflux disease without esophagitis; J44.9 Chronic obstructive pulmonary disease, unspecified; Z79.01 Long term (current) use of anticoagulants; Z79.899 Other long term (current) drug therapy
CPT/HCPCS: 36415; 71045; 80053; 84484; 85025; 93005; 96374; 99285; A9270; J2270; J7030

== ENCOUNTER 2021-09-27 10:27 | Day surgery (SDC) | payer MEDICAID ==
[~2021-09-27 10:27] MED LIST: Sodium Chloride 0.9% 10 ML Syringe FLUSH PRN
[2021-09-27] MEDS ORDERED: Propofol 200 MG/20 ML SDV IV ONE (10:28)
[2021-09-27] MEDS: Lactated Ringers 1,000 ML IV SCH (10:30)
[2021-09-27 14:42] VITALS: BP 126/58; PULSE 55
== END 2021-09-27 12:50 | disposition home or self-care (01) ==
LOC: FB.SDS 10:27
PROVIDERS: ATTEND Surgery
DX: Z12.11 Encounter for screening for malignant neoplasm of colon (principal); D12.6 Benign neoplasm of colon, unspecified; K57.30 Diverticulosis of large intestine without perforation or abscess without bleeding; I11.0 Hypertensive heart disease with heart failure; I50.42 Chronic combined systolic (congestive) and diastolic (congestive) heart failure; I48.91 Unspecified atrial fibrillation; K21.9 Gastro-esophageal reflux disease without esophagitis; F17.210 Nicotine dependence, cigarettes, uncomplicated; Z79.01 Long term (current) use of anticoagulants; Z79.899 Other long term (current) drug therapy
CPT/HCPCS: 00812-QZ; 88305; J2704; J7120

== ENCOUNTER 2022-05-17 22:28 | Emergency (ER) | payer MEDICAID ==
[2022-05-17] MEDS ORDERED: predniSONE 20 MG Tab PO ONE (22:29)
[2022-05-17] MEDS ORDERED: Albuterol/Ipratropium 3.0-0.5 MG/3 ML Neb Soln NEB ONE ×2 (22:32→23:26)
[2022-05-17] MEDS ORDERED: Sodium Chloride 0.9% 10 ML Syringe FLUSH PRN (22:32)
[2022-05-17] MEDS ORDERED: LORazepam 2 MG/ML SDV IVPUSH ONE (22:33)
[2022-05-17] MEDS ORDERED: Albuterol/Ipratropium 3.0-0.5 MG/3 ML Neb Soln ONE (22:34)
[2022-05-17 23:09] LABS: ESTIMATED GFR 110 mL/min (>60)
[2022-05-17 23:15] VITALS: PULSE 88
[2022-05-17] MEDS ORDERED: methylPREDNISolone Sodium Succinate 125 MG/2 ML SDV IVPUSH ONE (23:15)
[2022-05-17 23:46] LABS: CORONAVIRUS COVID-19 NAA NEGATIVE (NEGATIVE)
[2022-05-18 00:37] VITALS: BP 134/78
== END 2022-05-18 00:31 | disposition home or self-care (01) ==
LOC: FB.ED 22:28
DX: J43.9 Emphysema, unspecified (principal); I48.91 Unspecified atrial fibrillation; I11.0 Hypertensive heart disease with heart failure; I50.9 Heart failure, unspecified; Z79.01 Long term (current) use of anticoagulants; Z79.899 Other long term (current) drug therapy; Z86.16 Personal history of COVID-19; Z20.822 Contact with and (suspected) exposure to COVID-19
CPT/HCPCS: 0241U; 36415; 71045; 80053; 83880; 84484; 85025; 93005; 93010; 94640; 99283; J2060; J2930; J7512; J7620